=== PATIENT | male | born 1990 | race Caucasian/White ===

== ENCOUNTER 2017-07-17 19:31 | Emergency (ER) | payer SELFPAY ==
[~2017-07-17] VITALS: Ht 172.7 cm; Wt 82.2 kg
[~2017-07-17 19:31] MED LIST: CHANTIX1 MG PO; LISINOPRIL10 MG PO; NAPROXEN500 MG PO; PERCOCET 5/31 TABLET PO; ZOFRAN ODT4 MG PO
[2017-07-17 20:10] LABS: HEMATOCRIT 40.3 % (38.0-50.0); HEMOGLOBIN 14.4 G/DL (12.5-16.6); MCH 31.2 PG (29.0-34.0); MCHC 35.7 G/DL (30.0-36.0); MCV 87.4 FL (86-99); PLATELET COUNT 181 K/uL (156-360); RBC DIS.WIDTH-CV 12.2 % (11.8-14.6); RBC DIS.WIDTH-SD 39.2 % (39-53); RED BLOOD COUNT 4.61 M/uL (4.00-5.50); WHITE BLOOD COUNT 6.5 K/uL (4.1-10.2)
[2017-07-17 20:18] LABS: CHLORIDE 109 mEq/L (99-109)
[2017-07-17 20:19] LABS: POTASSIUM 4.1 mEq/L (3.7-5.4); SODIUM 142 mEq/L (136-147)
[2017-07-17 20:21] LABS: GLUCOSE 81 mg/dL (70-99); TOTAL PROTEIN 6.2 g/dL (6.4-8.3)
[2017-07-17 20:23] LABS: TOTAL BILIRUBIN 0.2 mg/dL (0.0-1.0)
[2017-07-17 20:24] LABS: ALKALINE PHOSPHATASE 49 IU/L (3-129); CREATININE 0.8 mg/dL (0.6-1.3); GFR ESTIMATE (CALCULATED) > 59 mL/min/ (58.99-99999)
[2017-07-17 20:26] LABS: AST (GOT) 17 IU/L (2-34); UREA NITROGEN (BUN) 10 mg/dL (9-23)
[2017-07-17 20:27] LABS: ALT (GPT) 24 IU/L (3-49)
[2017-07-17 20:28] LABS: LIPASE 29 U/L (1.0-51.0)
[2017-07-17] MEDS ORDERED: ZOFRAN ODT4 MG PO (20:49)
[2017-07-17] MEDS ORDERED: LISINOPRIL10 MG PO (20:51)
[2017-07-17 21:31] VITALS: BP 158/101
== END 2017-07-17 21:31 | disposition home or self-care (01) ==
LOC: EME 19:31
PROVIDERS: Nurse Practitioner Family
DX: R11.2 Nausea with vomiting, unspecified (principal); R19.7 Diarrhea, unspecified; I10 Essential (primary) hypertension; F17.200 Nicotine dependence, unspecified, uncomplicated
CPT/HCPCS: 80053; 83690; 85027; 99281; 99284